=== PATIENT | female | born 1935 | race Caucasian/White ===

== ENCOUNTER 2022-09-15 15:53 | Inpatient (IN) | payer MEDICARE ==
[2022-09-15 17:00] LABS: #Eosinphils 0.1 thou/uL (0.0-0.7); #Monocytes 0.9 thou/uL (0.11-0.59); %Basophils 0.6 % (0.0-1.0); %Eosinophils 1.8 % (0.0-10.0); %Lymphocytes 30.4 % (21.0-51.0); %Monocytes 12.4 % (0.0-10.0); %Neutrophils 54.7 % (42.0-75.0); Hemoglobin 11.8 g/dL (12.0-16.0); Mean Corpuscular Hemoglobin 29.4 pg (27.0-31.0); Mean Platelet Volume 11.1 fL (7.4-10.4); Platelet Count 234 10x3/uL (130-400); RBC Distribution Width 14.7 % (11.5-14.5); Red Blood Cell (RBC) Count 4.01 mill/uL (4.20-5.40); White Blood Cell (WBC) Count 7.2 10x3/uL (4.8-10.8)
[2022-09-15 17:26] LABS: ALT (SGPT) 11 U/L (8-55); AST (SGOT) 15 U/L (5-34); Albumin 3.8 g/dL (3.4-4.8); Alkaline Phosphatase 46 U/L (40-110); Anion Gap 14 mmol/L (10-20); BUN (Urea Nitrogen) 18 mg/dL (9.8-20.1); Bilirubin, Total 0.2 mg/dL (0.2-1.2); Calc. Creatinine Clearance 0 mL/min (70-130); Calcium 8.8 mg/dL (7.8-10.44); Carbon Dioxide 22 mmol/L (23-31); Chloride 106 mmol/L (98-107); Estimated GFR 63; Globulin 2.8 g/dL (2.4-3.5); Glucose 129 mg/dL (83-110); Potassium 4.3 mmol/L (3.5-5.1); Protein, Total 6.6 g/dL (5.8-8.1); Sodium 138 mmol/L (136-145)
[2022-09-15 18:23] LABS: Bacteria/HPF 4+ HPF (None Seen); Bilirubin Negative (Negative); Blood, Urine Negative (Negative); CAUTI Indications for Culture Alt mental st,lethar; Clarity Clear (Clear); Glucose, Urine (Dipstick) Normal (Negative); Ketone, Urine Negative (Negative); Leukocyte 25 Leu/uL (Negative); Nitrite 1+ (Negative); Protein, Urine (Dipstick) 20 mg/dL (Neg-Trace); RBC/HPF 0-3 HPF (0-3); Specific Gravity, Urine 1.031 (1.002-1.036); Squamous Epithelial 0-3 HPF (0-3); Urobilinogen Normal mg/dL (Less than 2)
[2022-09-15 18:27] LABS: Urine Culture Reflex No No
[2022-09-15] MEDS ORDERED: cefTRIAXone (ROCEPHIN) 1 GM VIAL ONE (19:08)
[2022-09-15] MEDS ORDERED: traMADol HCl 50 MG TAB PO PRN (19:56)
[2022-09-15] MEDS ORDERED: Dextrose 50% Abboject 50 ML SYRINGE SLOW IVP PRN (20:05)
[2022-09-15] MEDS ORDERED: Dextrose 5% in Water 1,000 ML IV PRN (20:05)
[2022-09-15] MEDS ORDERED: Glucagon 1 MG/ML KIT IM PRN (20:05)
[2022-09-15] MEDS ORDERED: Primidone 50 MG TAB PO SCH (21:00)
[2022-09-15] MEDS: Gabapentin 300 MG CAP PO SCH (23:35)
[2022-09-15] MEDS: Donepezil HCl 10 MG TAB PO SCH (23:35)
[2022-09-15] MEDS: Atorvastatin Calcium 40 MG TAB PO SCH (23:35)
[2022-09-15] MEDS: Primidone 50 MG TAB PO SCH (23:35)
[2022-09-16 04:52] LABS: #Eosinphils 0.2 thou/uL (0.0-0.7); #Monocytes 0.8 thou/uL (0.11-0.59); #Neutrophils 3.4 thou/uL (1.40-6.50); %Basophils 0.6 % (0.0-1.0); %Eosinophils 3.2 % (0.0-10.0); %Lymphocytes 33.3 % (21.0-51.0); %Monocytes 11.9 % (0.0-10.0); %Neutrophils 50.8 % (42.0-75.0); Hemoglobin 11.5 g/dL (12.0-16.0); Mean Corpuscular HGB CONC 32.3 g/dL (32.0-36.0); Mean Platelet Volume 10.9 fL (7.4-10.4); Platelet Count 216 10x3/uL (130-400); RBC Distribution Width 14.5 % (11.5-14.5); Red Blood Cell (RBC) Count 3.83 mill/uL (4.20-5.40); White Blood Cell (WBC) Count 6.6 10x3/uL (4.8-10.8)
[2022-09-16 05:05] VITALS: BMI 23.0
[2022-09-16 05:17] LABS: Anion Gap 11 mmol/L (10-20); BUN (Urea Nitrogen) 15 mg/dL (9.8-20.1); Calc. Creatinine Clearance 55 mL/min (70-130); Calcium 8.7 mg/dL (7.8-10.44); Carbon Dioxide 23 mmol/L (23-31); Chloride 106 mmol/L (98-107); Estimated GFR 85; Glucose 99 mg/dL (83-110); Potassium 3.7 mmol/L (3.5-5.1); Sodium 136 mmol/L (136-145)
[2022-09-16] MEDS ORDERED: Lisinopril 10 MG TAB ONE (09:28)
[2022-09-16] MEDS: Primidone 50 MG TAB PO SCH ×2 (09:40→20:23)
[2022-09-16] MEDS: Lisinopril 10 MG TAB PO SCH (09:40)
[2022-09-16] MEDS: Donepezil HCl 10 MG TAB PO SCH ×2 (09:40→20:23)
[2022-09-16] MEDS: cefTRIAXone\\ROCEPHIN 2 GM in Sodium Chloride 0.9% 100 ML IVPB SCH (16:47)
[2022-09-16] MEDS: Gabapentin 300 MG CAP PO SCH (20:23)
[2022-09-16] MEDS: Atorvastatin Calcium 40 MG TAB PO SCH (20:23)
[2022-09-17 05:01] LABS: #Eosinphils 0.2 thou/uL (0.0-0.7); #Monocytes 0.9 thou/uL (0.11-0.59); #Neutrophils 3.7 thou/uL (1.40-6.50); %Basophils 0.6 % (0.0-1.0); %Eosinophils 2.9 % (0.0-10.0); %Lymphocytes 32.3 % (21.0-51.0); %Monocytes 11.8 % (0.0-10.0); Mean Corpuscular HGB CONC 33.7 g/dL (32.0-36.0); Mean Platelet Volume 10.9 fL (7.4-10.4); Platelet Count 215 10x3/uL (130-400); RBC Distribution Width 14.4 % (11.5-14.5); Red Blood Cell (RBC) Count 3.87 mill/uL (4.20-5.40); White Blood Cell (WBC) Count 7.2 10x3/uL (4.8-10.8)
[2022-09-17 05:21] LABS: Anion Gap 12 mmol/L (10-20); BUN (Urea Nitrogen) 14 mg/dL (9.8-20.1); Calc. Creatinine Clearance 51 mL/min (70-130); Calcium 8.8 mg/dL (7.8-10.44); Carbon Dioxide 24 mmol/L (23-31); Chloride 104 mmol/L (98-107); Estimated GFR 82; Glucose 113 mg/dL (83-110); Potassium 3.5 mmol/L (3.5-5.1); Sodium 136 mmol/L (136-145)
[2022-09-17] MEDS: Lisinopril 10 MG TAB PO SCH (09:35)
[2022-09-17] MEDS: Donepezil HCl 10 MG TAB PO SCH ×2 (09:35→21:07)
[2022-09-17] MEDS: Primidone 50 MG TAB PO SCH ×2 (09:37→21:07)
[2022-09-17] MEDS ORDERED: Ondansetron PF 4 MG/2 ML Vial IVP PRN (13:18)
[2022-09-17] MEDS: cefTRIAXone\\ROCEPHIN 2 GM in Sodium Chloride 0.9% 100 ML IVPB SCH (17:10)
[2022-09-17] MEDS: Promethazine HCl 12.5 MG in Sodium Chloride 0.9% 50 ML IVPB PRN (18:04)
[2022-09-17] MEDS: Gabapentin 300 MG CAP PO SCH (21:07)
[2022-09-17] MEDS: Atorvastatin Calcium 40 MG TAB PO SCH (21:07)
[2022-09-18] MEDS: Promethazine HCl 12.5 MG in Sodium Chloride 0.9% 50 ML IVPB PRN (04:47)
[2022-09-18 05:30] LABS: #Eosinphils 0.2 thou/uL (0.0-0.7); #Monocytes 0.7 thou/uL (0.11-0.59); #Neutrophils 3.3 thou/uL (1.40-6.50); %Basophils 0.7 % (0.0-1.0); %Eosinophils 3.6 % (0.0-10.0); %Lymphocytes 30.3 % (21.0-51.0); %Monocytes 11.7 % (0.0-10.0); %Neutrophils 53.5 % (42.0-75.0); Hemoglobin 11.7 g/dL (12.0-16.0); Mean Corpuscular HGB CONC 33.1 g/dL (32.0-36.0); Mean Corpuscular Hemoglobin 30.2 pg (27.0-31.0); Mean Corpuscular Volume 91.2 fl (78.0-98.0); Platelet Count 212 10x3/uL (130-400); RBC Distribution Width 14.2 % (11.5-14.5); Red Blood Cell (RBC) Count 3.88 mill/uL (4.20-5.40); White Blood Cell (WBC) Count 6.1 10x3/uL (4.8-10.8)
[2022-09-18 05:55] LABS: Anion Gap 13 mmol/L (10-20); BUN (Urea Nitrogen) 12 mg/dL (9.8-20.1); Calc. Creatinine Clearance 50 mL/min (70-130); Calcium 8.7 mg/dL (7.8-10.44); Carbon Dioxide 24 mmol/L (23-31); Chloride 103 mmol/L (98-107); Estimated GFR 81; Glucose 102 mg/dL (83-110); Potassium 3.2 mmol/L (3.5-5.1); Sodium 137 mmol/L (136-145)
[2022-09-18] MEDS: Primidone 50 MG TAB PO SCH ×2 (10:10→22:08)
[2022-09-18] MEDS: Donepezil HCl 10 MG TAB PO SCH ×2 (10:10→22:09)
[2022-09-18] MEDS: Lisinopril 10 MG TAB PO SCH (10:10)
[2022-09-18] MEDS ORDERED: Electrolyte Replacement Protocol 1 EACH FS SCH (13:45)
[2022-09-18] MEDS: HumaLOG 300 UNITS/3 ML VIAL SC PRN ×2 (14:02→18:26)
[2022-09-18] MEDS ORDERED: Potassium Bicarbonate/Cit Ac 20 MEQ TAB PO SCH (14:30)
[2022-09-18] MEDS ORDERED: Potassium Chloride 20 MEQ TAB PO SCH (14:30)
[2022-09-18] MEDS ORDERED: Electrolyte Replacement Protocol FS PRN (15:00)
[2022-09-18] MEDS: cefTRIAXone\\ROCEPHIN 2 GM in Sodium Chloride 0.9% 100 ML IVPB SCH (17:44)
[2022-09-18 19:36] LABS: Potassium 4.3 mmol/L (3.5-5.1)
[2022-09-18] MEDS: Atorvastatin Calcium 40 MG TAB PO SCH (22:08)
[2022-09-18] MEDS: Gabapentin 300 MG CAP PO SCH (22:08)
[2022-09-19 06:25] LABS: #Eosinphils 0.2 thou/uL (0.0-0.7); #Monocytes 0.8 thou/uL (0.11-0.59); #Neutrophils 3.2 thou/uL (1.40-6.50); %Basophils 0.7 % (0.0-1.0); %Eosinophils 3.4 % (0.0-10.0); %Lymphocytes 30.1 % (21.0-51.0); %Monocytes 12.6 % (0.0-10.0); %Neutrophils 52.9 % (42.0-75.0); Hemoglobin 11.7 g/dL (12.0-16.0); Mean Corpuscular HGB CONC 33.4 g/dL (32.0-36.0); Mean Corpuscular Hemoglobin 30.8 pg (27.0-31.0); Mean Corpuscular Volume 92.1 fl (78.0-98.0); Mean Platelet Volume 11.5 fL (7.4-10.4); Platelet Count 226 10x3/uL (130-400); RBC Distribution Width 14.5 % (11.5-14.5); White Blood Cell (WBC) Count 6.1 10x3/uL (4.8-10.8)
[2022-09-19 06:31] LABS: Anion Gap 14 mmol/L (10-20); BUN (Urea Nitrogen) 15 mg/dL (9.8-20.1); Calc. Creatinine Clearance 46 mL/min (70-130); Calcium 8.4 mg/dL (7.8-10.44); Carbon Dioxide 23 mmol/L (23-31); Chloride 104 mmol/L (98-107); Estimated GFR 72; Glucose 111 mg/dL (83-110); Magnesium 1.5 mg/dL (1.6-2.6); Potassium 3.8 mmol/L (3.5-5.1); Sodium 137 mmol/L (136-145)
[2022-09-19] MEDS ORDERED: Magnesium 2 GM/50 ML(in water) 2 GM in Premix Bag 1 BAG IVPB SCH (08:00)
[2022-09-19] MEDS: Acetaminophen 325 MG TAB PO PRN (11:38)
[2022-09-19] MEDS: Lisinopril 10 MG TAB PO SCH (11:38)
[2022-09-19] MEDS: Primidone 50 MG TAB PO SCH ×2 (11:38→20:48)
[2022-09-19] MEDS: Donepezil HCl 10 MG TAB PO SCH ×2 (11:38→20:47)
[2022-09-19] MEDS: cefTRIAXone\\ROCEPHIN 2 GM in Sodium Chloride 0.9% 100 ML IVPB SCH (18:08)
[2022-09-19] MEDS: Atorvastatin Calcium 40 MG TAB PO SCH (20:47)
[2022-09-19] MEDS: Gabapentin 300 MG CAP PO SCH (20:48)
[2022-09-20 05:14] LABS: #Basophils 0.1 thou/uL (0.0-0.2); #Eosinphils 0.2 thou/uL (0.0-0.7); #Monocytes 0.9 thou/uL (0.11-0.59); #Neutrophils 3.1 thou/uL (1.40-6.50); %Basophils 0.8 % (0.0-1.0); %Eosinophils 3.5 % (0.0-10.0); %Monocytes 14.4 % (0.0-10.0); %Neutrophils 52.1 % (42.0-75.0); Hemoglobin 11.7 g/dL (12.0-16.0); Mean Corpuscular HGB CONC 33.1 g/dL (32.0-36.0); Mean Corpuscular Hemoglobin 30.5 pg (27.0-31.0); Mean Corpuscular Volume 92.2 fl (78.0-98.0); Platelet Count 237 10x3/uL (130-400); RBC Distribution Width 14.6 % (11.5-14.5); Red Blood Cell (RBC) Count 3.84 mill/uL (4.20-5.40)
[2022-09-20 05:40] LABS: Anion Gap 12 mmol/L (10-20); BUN (Urea Nitrogen) 14 mg/dL (9.8-20.1); Calc. Creatinine Clearance 47 mL/min (70-130); Calcium 8.4 mg/dL (7.8-10.44); Carbon Dioxide 25 mmol/L (23-31); Chloride 105 mmol/L (98-107); Estimated GFR 74; Glucose 125 mg/dL (83-110); Magnesium 1.9 mg/dL (1.6-2.6); Sodium 138 mmol/L (136-145)
[2022-09-20] MEDS ORDERED: Magnesium 2 GM/50 ML(in water) 2 GM in Premix Bag 1 BAG IVPB SCH (09:00)
[2022-09-20] MEDS: Acetaminophen 325 MG TAB PO PRN (09:03)
[2022-09-20] MEDS: Donepezil HCl 10 MG TAB PO SCH ×2 (09:03→21:09)
[2022-09-20] MEDS: Primidone 50 MG TAB PO SCH ×2 (09:05→21:09)
[2022-09-20] MEDS: cefTRIAXone\\ROCEPHIN 2 GM in Sodium Chloride 0.9% 100 ML IVPB SCH (18:08)
[2022-09-20] MEDS: Atorvastatin Calcium 40 MG TAB PO SCH (21:08)
[2022-09-20] MEDS: Gabapentin 300 MG CAP PO SCH (21:09)
[2022-09-21 05:33] LABS: #Eosinphils 0.2 thou/uL (0.0-0.7); #Monocytes 0.8 thou/uL (0.11-0.59); #Neutrophils 4.8 thou/uL (1.40-6.50); %Basophils 0.5 % (0.0-1.0); %Eosinophils 2.5 % (0.0-10.0); %Monocytes 11.1 % (0.0-10.0); %Neutrophils 63.6 % (42.0-75.0); Mean Corpuscular Hemoglobin 30.9 pg (27.0-31.0); Mean Corpuscular Volume 93.8 fl (78.0-98.0); Platelet Count 254 10x3/uL (130-400); RBC Distribution Width 14.5 % (11.5-14.5); Red Blood Cell (RBC) Count 3.88 mill/uL (4.20-5.40); White Blood Cell (WBC) Count 7.5 10x3/uL (4.8-10.8)
[2022-09-21 06:00] LABS: Anion Gap 11 mmol/L (10-20); BUN (Urea Nitrogen) 11 mg/dL (9.8-20.1); Calc. Creatinine Clearance 51 mL/min (70-130); Calcium 8.7 mg/dL (7.8-10.44); Carbon Dioxide 26 mmol/L (23-31); Chloride 104 mmol/L (98-107); Estimated GFR 83; Glucose 117 mg/dL (83-110); Magnesium 2.2 mg/dL (1.6-2.6); Sodium 137 mmol/L (136-145)
[2022-09-21] MEDS: Donepezil HCl 10 MG TAB PO SCH ×2 (10:04→19:58)
[2022-09-21] MEDS: Primidone 50 MG TAB PO SCH ×2 (10:05→19:58)
[2022-09-21] MEDS ORDERED: Senokot S 8.6-50 MG TAB PO PRN (11:43)
[2022-09-21] MEDS: Atorvastatin Calcium 40 MG TAB PO SCH (19:57)
[2022-09-21] MEDS: Gabapentin 300 MG CAP PO SCH (19:57)
[2022-09-21] MEDS: Acetaminophen 325 MG TAB PO PRN (19:58)
[2022-09-22 06:12] LABS: #Basophils 0.1 thou/uL (0.0-0.2); #Eosinphils 0.3 thou/uL (0.0-0.7); #Monocytes 0.7 thou/uL (0.11-0.59); #Neutrophils 2.1 thou/uL (1.40-6.50); %Eosinophils 4.8 % (0.0-10.0); %Lymphocytes 40.5 % (21.0-51.0); %Monocytes 12.4 % (0.0-10.0); %Neutrophils 40.9 % (42.0-75.0); Hemoglobin 12.4 g/dL (12.0-16.0); Mean Corpuscular HGB CONC 32.9 g/dL (32.0-36.0); Mean Corpuscular Hemoglobin 30.5 pg (27.0-31.0); Mean Corpuscular Volume 92.9 fl (78.0-98.0); Platelet Count 277 10x3/uL (130-400); RBC Distribution Width 14.1 % (11.5-14.5); Red Blood Cell (RBC) Count 4.06 mill/uL (4.20-5.40); White Blood Cell (WBC) Count 5.2 10x3/uL (4.8-10.8)
[2022-09-22 06:35] LABS: Anion Gap 12 mmol/L (10-20); BUN (Urea Nitrogen) 15 mg/dL (9.8-20.1); Calc. Creatinine Clearance 51 mL/min (70-130); Carbon Dioxide 24 mmol/L (23-31); Chloride 105 mmol/L (98-107); Estimated GFR 82; Glucose 118 mg/dL (83-110); Potassium 3.8 mmol/L (3.5-5.1); Sodium 137 mmol/L (136-145)
[2022-09-22] MEDS: Polyethylene Glycol 3350 17 GM Packet PO SCH (08:50)
[2022-09-22] MEDS: Primidone 50 MG TAB PO SCH ×2 (08:50→20:52)
[2022-09-22] MEDS: Donepezil HCl 10 MG TAB PO SCH ×2 (08:51→20:52)
[2022-09-22] MEDS: Atorvastatin Calcium 40 MG TAB PO SCH (20:51)
[2022-09-22] MEDS: Gabapentin 300 MG CAP PO SCH (20:51)
[2022-09-23 05:51] LABS: #Eosinphils 0.2 thou/uL (0.0-0.7); #Monocytes 0.7 thou/uL (0.11-0.59); #Neutrophils 2.7 thou/uL (1.40-6.50); %Basophils 0.7 % (0.0-1.0); %Eosinophils 4.1 % (0.0-10.0); %Lymphocytes 36.3 % (21.0-51.0); %Monocytes 11.9 % (0.0-10.0); %Neutrophils 46.7 % (42.0-75.0); Hemoglobin 12.3 g/dL (12.0-16.0); Mean Corpuscular HGB CONC 32.5 g/dL (32.0-36.0); Mean Corpuscular Hemoglobin 30.4 pg (27.0-31.0); Mean Corpuscular Volume 93.8 fl (78.0-98.0); Mean Platelet Volume 10.9 fL (7.4-10.4); Platelet Count 286 10x3/uL (130-400); RBC Distribution Width 14.2 % (11.5-14.5); Red Blood Cell (RBC) Count 4.04 mill/uL (4.20-5.40); White Blood Cell (WBC) Count 5.8 10x3/uL (4.8-10.8)
[2022-09-23 06:08] LABS: Anion Gap 12 mmol/L (10-20); BUN (Urea Nitrogen) 17 mg/dL (9.8-20.1); Calc. Creatinine Clearance 48 mL/min (70-130); Calcium 8.9 mg/dL (7.8-10.44); Carbon Dioxide 25 mmol/L (23-31); Chloride 105 mmol/L (98-107); Estimated GFR 77; Glucose 117 mg/dL (83-110); Sodium 138 mmol/L (136-145)
[2022-09-23] MEDS: Polyethylene Glycol 3350 17 GM Packet PO SCH (09:18)
[2022-09-23] MEDS: Primidone 50 MG TAB PO SCH (09:18)
[2022-09-23] MEDS: Donepezil HCl 10 MG TAB PO SCH (09:18)
[2022-09-23 16:30] VITALS: BP 125/74; TEMP 97.9
== END 2022-09-23 20:05 | DRG 689 ==
LOC: SUATTDRO 15:53 → ERS 15:53 → ERHOLD 19:22 → NEURO 09-16 13:06
PROVIDERS: ADMIT Family Medicine; ATTEND Internal Medicine
DX: N39.0 Urinary tract infection, site not specified (principal); G93.41 Metabolic encephalopathy; I25.10 Atherosclerotic heart disease of native coronary artery without angina pectoris; E11.9 Type 2 diabetes mellitus without complications; E78.5 Hyperlipidemia, unspecified; F01.50 Vascular dementia, unspecified severity, without behavioral disturbance, psychotic disturbance, mood disturbance, and anxiety; B96.20 Unspecified Escherichia coli [E. coli] as the cause of diseases classified elsewhere; Z66 Do not resuscitate; K21.9 Gastro-esophageal reflux disease without esophagitis; E87.6 Hypokalemia; I48.0 Paroxysmal atrial fibrillation; I10 Essential (primary) hypertension; R42 Dizziness and giddiness; Z90.49 Acquired absence of other specified parts of digestive tract; Z88.1 Allergy status to other antibiotic agents; Z91.040 Latex allergy status; Z88.0 Allergy status to penicillin; Z88.2 Allergy status to sulfonamides; Z79.84 Long term (current) use of oral hypoglycemic drugs; I69.398 Other sequelae of cerebral infarction; Z79.899 Other long term (current) drug therapy; Z79.01 Long term (current) use of anticoagulants; Z95.0 Presence of cardiac pacemaker; Z79.82 Long term (current) use of aspirin
CPT/HCPCS: 36415; 36416; 51701; 70450; 70551; 80048; 80053; 81001; 83735; 85025; 87077; 87086; 87186; 93005; 94760; 96365; J0696; J1650; J1815; J2405; J2550; J3475; J3490

== ENCOUNTER 2023-01-28 15:16 | Observation (INO) | payer MEDICARE ==
[2023-01-28] MEDS ORDERED: Dextrose 50% Abboject 50 ML SYRINGE SLOW IVP PRN (17:50)
[2023-01-28] MEDS ORDERED: Ondansetron ODT 4 MG TAB PO PRN (17:50)
[2023-01-28] MEDS ORDERED: Dextrose 5% in Water 1,000 ML IV PRN (17:50)
[2023-01-28] MEDS ORDERED: Glucagon 1 MG/ML KIT IM PRN (17:50)
[2023-01-28] MEDS ORDERED: HumaLOG 300 UNITS/3 ML VIAL SC PRN ×2 (17:50)
[2023-01-28] MEDS ORDERED: Ondansetron PF 4 MG/2 ML Vial IVP PRN (17:50)
[2023-01-28] MEDS ORDERED: Nitroglycerin 0.4 MG TAB (25 Tab Bottle) SL PRN (17:50)
[2023-01-28] MEDS ORDERED: Acetaminophen 650 MG Suppository PR PRN (17:50)
[2023-01-28] MEDS ORDERED: Acetaminophen 325 MG TAB PO PRN (17:50)
[2023-01-28 18:21] VITALS: BMI 25.7
[2023-01-29 05:08] LABS: #Eosinphils 0.1 thou/uL (0.0-0.7); #Monocytes 0.6 thou/uL (0.11-0.59); #Neutrophils 2.2 thou/uL (1.40-6.50); %Basophils 0.8 % (0.0-1.0); %Eosinophils 2.5 % (0.0-10.0); %Lymphocytes 41.6 % (21.0-51.0); %Monocytes 11.6 % (0.0-10.0); %Neutrophils 43.3 % (42.0-75.0); Hematocrit 38.9 % (36.0-47.0); Mean Corpuscular HGB CONC 33.4 g/dL (32.0-36.0); Mean Corpuscular Volume 92.6 fl (78.0-98.0); Mean Platelet Volume 11.3 fL (7.4-10.4); Platelet Count 205 10x3/uL (130-400); RBC Distribution Width 13.2 % (11.5-14.5); White Blood Cell (WBC) Count 5.2 10x3/uL (4.8-10.8)
[2023-01-29 07:17] LABS: Anion Gap 15 mmol/L (10-20); BUN (Urea Nitrogen) 14 mg/dL (9.8-20.1); Calc. Creatinine Clearance 49 mL/min (70-130); Calcium 9.1 mg/dL (7.8-10.44); Carbon Dioxide 23 mmol/L (23-31); Chloride 107 mmol/L (98-107); Estimated GFR 70; Glucose 101 mg/dL (83-110); Potassium 3.7 mmol/L (3.5-5.1); Sodium 141 mmol/L (136-145)
[2023-01-29 08:19] LABS: Troponin I Less than 0.010 ng/mL (< 0.028)
[2023-01-29] MEDS ORDERED: Aspirin Chewable 81 MG TAB PO SCH (09:00)
[2023-01-29 09:24] LABS: Troponin I Less than 0.010 ng/mL (< 0.028)
[2023-01-29] MEDS ORDERED: Regadenoson 0.4 MG/5 ML SYRINGE ONE (10:17)
[2023-01-29 11:59] VITALS: BP 175/86; TEMP 97.7
== END 2023-01-29 18:36 | disposition home or self-care (01) ==
LOC: 2SW 15:16
PROVIDERS: ADMIT Internal Medicine; ATTEND Hospitalist
DX: R07.9 Chest pain, unspecified (principal); I50.9 Heart failure, unspecified; I11.0 Hypertensive heart disease with heart failure; E11.9 Type 2 diabetes mellitus without complications; I48.91 Unspecified atrial fibrillation; E78.5 Hyperlipidemia, unspecified; F03.90 Unspecified dementia, unspecified severity, without behavioral disturbance, psychotic disturbance, mood disturbance, and anxiety; E87.6 Hypokalemia; Z88.0 Allergy status to penicillin; Z88.1 Allergy status to other antibiotic agents; Z88.2 Allergy status to sulfonamides; Z91.040 Latex allergy status; Z86.73 Personal history of transient ischemic attack (TIA), and cerebral infarction without residual deficits; Z95.0 Presence of cardiac pacemaker; Z79.899 Other long term (current) drug therapy; Z90.49 Acquired absence of other specified parts of digestive tract; Z96.659 Presence of unspecified artificial knee joint; Z96.649 Presence of unspecified artificial hip joint
CPT/HCPCS: 78452; 80048; 82962 ×2; 84484 ×2; 85025; 93017; 94760 ×2; A9500; 36415; 36416; G0378; J2785